=== PATIENT | female | born 1965 | race Caucasian/White ===

== ENCOUNTER → 2018-12-09 | Outpatient (CLI) | payer MEDICARE, BC ==
--- NOTE | 2018-12-09 13:51 | US ---
EXAMINATION TYPE: US transvaginal DATE OF EXAM: 12/09/2018 COMPARISON: NONE CLINICAL HISTORY: N95.0 Postmenopausal bleeding. TECHNIQUE: Transvaginal sonographic images of the pelvis were acquired. Date of LMP: Patient states she had her last cycle around 2 years ago. Bleeding every month for the past 3-4 months. EXAM MEASUREMENTS: Uterus: 8.1 x 4.5 x 4.6 cm Endometrial Stripe: 0.3 cm Right Ovary: 2.0 x 2.1 x 1.2 cm Left Ovary: 2.8 x 2.4 x 1.4 cm 1. Uterus: Anteverted. Probable nabothian cyst visualized. Heterogeneous 2. Endometrium: wnl 3. Right Ovary: Two cystic areas visualized, largest measuring 1.2 x 0.7 x 0.9 cm. Second appears pe dunculated measuring 0.8 x 0.8 x 0.9 cm. 4. Left Ovary: Cystic area visualized measuring 2.0 x 1.4 x 1.3 cm 5. Bilateral Adnexa: wnl 6. Posterior cul-de-sac: Tiny amount of free fluid visualized IMPRESSION: 1. No abnormal endometrial thickening. Postmenopausal bleeding could relate to endometrial atrophy ho wever direct visualization could be performed. 2. Small simple appearing ovarian cysts measuring up to 2 cm. These appear benign.
== END | disposition home or self-care (01) ==
LOC: RADUSWWP 12:51
PROVIDERS: ATTEND Family Medicine
DX: N83.209 Unspecified ovarian cyst, unspecified side (principal); N95.0 Postmenopausal bleeding
CPT/HCPCS: 76830

== ENCOUNTER → 2018-12-10 | Outpatient (CLI) | payer MEDICARE, BC ==
[2018-12-10 07:58] LABS: Basophils # (A) 0.1 k/uL (0-0.2); Basophils % (A) 1 %; Eosinophils # (A) 0.1 k/uL (0-0.7); Eosinophils % (A) 2 %; HCT 43.3 % (34.0-46.0); HGB 14.1 gm/dL (11.4-16.0); Lymphocytes # (A) 1.4 k/uL (1.0-4.8); Lymphocytes % (A) 24 %; MCH 28.5 pg (25.0-35.0); MCHC 32.6 g/dL (31.0-37.0); MCV 87.3 fL (80.0-100.0); Monocytes # (A) 0.3 k/uL (0-1.0); Monocytes % (A) 6 %; Neutrophils # (A) 3.6 k/uL (1.3-7.7); Neutrophils % (A) 63 %; Platelet Count 290 k/uL (150-450); RBC 4.96 m/uL (3.80-5.40); RDW 14.3 % (11.5-15.5); WBC 5.7 k/uL (3.8-10.6)
[2018-12-10 11:34] LABS: Albumin 4.9 g/dL (3.80-4.90); Albumin/Globulin Ratio 2.23 (1.60-3.17); Anion Gap 9.4 mmol/L (4.00-12.00); Calcium 9.8 mg/dL (8.7-10.3); Carbon Dioxide 26.6 mmol/L (21.6-31.8); Globulin 2.2 g/dL (1.6-3.3); LDL Cholesterol,Calculated 109.6 mg/dL (0.0-131.0); Potassium 4.2 mmol/L (3.5-5.5); Total Bilirubin 0.5 mg/dL (0.2-1.2); Total Protein 7.1 g/dL (6.2-8.2); VLDL Calculation 16.4 mg/dL (5.00-40.00)
== END | disposition home or self-care (01) ==
LOC: LABWHC1 06:33
PROVIDERS: ATTEND Family Medicine
DX: N95.0 Postmenopausal bleeding (principal); Z13.220 Encounter for screening for lipoid disorders; Z13.29 Encounter for screening for other suspected endocrine disorder
CPT/HCPCS: 36415; 80053; 80061; 82670; 83001; 83002; 84443; 85025

== ENCOUNTER 2020-01-20 10:03 | Emergency (ER) | payer BC, MEDICARE ==
[2020-01-20 10:08] VITALS: BP 130/76; PULSE 104; RESP 18; TEMP 98.2
[2020-01-20] MEDS ORDERED: Acetaminophen-Codeine 300-30mg TAB PO STA (10:29)
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
[2020-01-20] MEDS ORDERED: diazePAM 5 MG TAB PO STA (11:31)
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
== END 2020-01-20 12:23 | disposition home or self-care (01) ==
LOC: EC 10:03
DX: S76.912A Strain of unspecified muscles, fascia and tendons at thigh level, left thigh, initial encounter (principal); W01.0XXA Fall on same level from slipping, tripping and stumbling without subsequent striking against object, initial encounter; Y93.89 Activity, other specified; Y92.009 Unspecified place in unspecified non-institutional (private) residence as the place of occurrence of the external cause
CPT/HCPCS: 73502; 99284